=== PATIENT | male | born 1965 | race Caucasian/White ===

== ENCOUNTER 2021-04-04 21:22 | Emergency (ER) | payer OTHER ==
[2021-04-04 22:17] LABS: RED BLOOD COUNT 5.07 M/UL (4.20-5.50); WHITE BLOOD COUNT 10.3 K/UL (4.5-11.0)
[2021-04-04 22:46] LABS: BUN/CREATININE RATIO 20 (0-10)
[2021-04-05] MEDS ORDERED: NORFLEX 100 MG100 MG PO (00:37)
[2021-04-05] MEDS ORDERED: LODINE CAP 300300 MG PO (00:37)
[2021-04-05] MEDS ORDERED: ZOFRAN ODT 4 MG4 MG PO (00:45)
[2021-04-05] MEDS ORDERED: GLUCOPHAGE 500500 MG PO (00:53)
== END 2021-04-05 00:59 | disposition home or self-care (01) ==
LOC: ER1 21:22
PROVIDERS: Emergency Medicine
DX: S39.012A Strain of muscle, fascia and tendon of lower back, initial encounter (principal); S29.012A Strain of muscle and tendon of back wall of thorax, initial encounter; M51.27 Other intervertebral disc displacement, lumbosacral region; E66.01 Morbid (severe) obesity due to excess calories; R11.2 Nausea with vomiting, unspecified; X50.9XXA Other and unspecified overexertion or strenuous movements or postures, initial encounter
CPT/HCPCS: 72128; 72131; 80053; 81001; 82550; 82553; 83690; 83874; 84484; 85025; 85652; 86140; 96374; 96375; 96376; 99284; J1885; J2270; J2405